=== PATIENT | female | born 1980 | race Caucasian/White ===

== ENCOUNTER 2020-03-22 10:35 | Outpatient (CLI) | payer OTHER, SELFPAY ==
--- NOTE | ~2020-03-22 | MM_ITS ---
EXAMINATION: MM screening liza BI w carol HISTORY: Screening mammogram TECHNIQUE: Craniocaudal and mediolateral oblique 3-D tomosynthesis images were obtained and synthetic 2-D images were generated. CAD analysis was submitted and interpreted. COMPARISON: No prior mammogram is available for comparison at this institution. BREAST PARENCHYMAL COMPOSITION: There are scattered areas of fibroglandular density. FINDINGS: There is no evidence of suspicious mass, calcification, or architectural distortion to sugg est malignancy in either breast. There has been no suspicious interval change. IMPRESSION: 1. No mammographic evidence of malignancy. 2. Recommend routine screening mammography in one year. BI-RADS Category 1: Negative Reviewed, dictated and finalized at location [facility]
== END 2020-03-22 10:36 | disposition home or self-care (01) ==
LOC: ANHIMG 10:38
PROVIDERS: PCP Internal Medicine; Visit Provider Surgery Plastic and Reconstructive Surgery
DX: Z12.31 Encounter for screening mammogram for malignant neoplasm of breast (principal)
CPT/HCPCS: 77063; 77067

== ENCOUNTER 2020-04-08 02:22 | Outpatient (CLI) | payer OTHER, SELFPAY ==
[2020-04-08 18:35] LABS: SARS-CoV-2 RNA PCR Negative
== END 2020-04-08 02:23 | disposition home or self-care (01) ==
LOC: ANHCOVIDDT 02:22
PROVIDERS: PCP Internal Medicine; Visit Provider Surgery Plastic and Reconstructive Surgery
DX: Z01.812 Encounter for preprocedural laboratory examination (principal); Z20.828 Contact with and (suspected) exposure to other viral communicable diseases
CPT/HCPCS: 87635; C9803; U0003

== ENCOUNTER 2020-04-11 00:11 | Day surgery (SDC) | payer OTHER, SELFPAY ==
[2020-04-02 14:15] VITALS: BMI 24.2
--- NOTE | 2020-04-10 13:24 | WPDANESEPPF ---
Anes - Initial Pre Proc Eval Procedure: Operation Date: 04/11/20 07:30 Proposed Procedures p Bilateral Breast Implant Removal - Jaiden Ramos MD s Bilateral Breast Mastopexy - Jaiden Ramos MD s Bilateral Upper Eye Lid Blepharoplasty - Jaiden Ramos MD Date/Time: 04/10/20 13:24 Surgeon: Jaiden Ramos MD Pre Op Diagnosis: Hx of Breast Augmentation, Dermatochalasis Patient Data Age: 39 Gender: F Height: 5 ft 6 in Weight: 68 kg Allergies Allergy/AdvReac Type Severity Reaction Status Date / Time Sulfa (Sulfonamide Allergy Intermediate Rash Verified 04/11/20 06:35 Antibiotics) sulfamethoxazole Allergy Mild rash Verified 04/11/20 06:35 trimethoprim Allergy Mild Rash Verified 04/11/20 06:35 tramadol AdvReac Intermediate Itching Verified 04/11/20 06:35 Home Medications Medication Instructions Recorded Confirmed Type No Home Medications 04/02/20 04/11/20 History Patient hx anesthesia problems: none Family hx anesthesia problems: none PMFSH Past Medical History Medical History Migraines Surgical History Surgical History History of breast augmentation Family History Family History Sibling Family history of multiple sclerosis Mother Family history of anemia Social History Social History Smoking status: Never smoker Second hand tobacco smoke exposure: No Smoking end date: 04/26/05 Alcohol intake: current Alcohol use details: occassional Living arrangements: with family Spiritual care concerns: No Anes - Eval Final PreProcedure Day of Procedure 04/10/20 13:24 Patient weight: normal Heart: regular rate and rhythm Lungs: clear to auscultation Airway: Mallampati scale class II Neurological: alert and oriented Last oral intake: >/= 8 hours ASA classification: II Emergent: no Anesthetic plan: proceed Anesthesia type and monitoring: general LMA and standard monitoring Informed Consent: The patient's anesthetic plan and its attendant risks and benefits were discussed with the patient/family/POA. Questions were solicited and answers provided to the satisfaction of the patient/family/POA.
[2020-04-11] VITALS (10 sets, daily range): BP systolic 111–127; BP diastolic 75–90; PULSE 53–89; RESP 10–20; TEMP 36.2–36.6; O2SAT 100
[2020-04-11] MEDS: LACTATED RINGERS 1,000 ML 30 ML IV CONT ×2 (06:26→11:15)
[2020-04-11 06:44] LABS: Urine Cotinine NEGATIVE
--- NOTE | 2020-04-11 06:57 | WPDHPUPDATE1 ---
History and Physical Update Update Date/Time: 04/11/20 06:57 History and Physical has been reviewed, including an updated exam of the patient. There are NO changes in the patient's condition. Risks, benefits, and alternatives have been discussed and questions answered. Patient agrees to proceed with procedure.
[2020-04-11] MEDS: ceFAZolin 2 GM/D5W 50 ML 2 GM/50 ML BAG IVPB (07:37)
[2020-04-11] MEDS: LIDO 1%/EPINEPHRINE 1:100,000 20 ML VIAL 12 ML INFILTRATE (08:08)
[2020-04-11] MEDS: TETRACAINE HCL 0.5% OPHTH SOLN 4 ML BTL 1 DROP EACH EYE (08:08)
--- NOTE | 2020-04-11 11:08 | PM.PROC ---
Procedure Note - Detailed Date of procedure: 04/11/20 Pre-op diagnosis: Hx of Breast Augmentation, Dermatochalasis Post-op diagnosis: same Procedure performed: 1. Bilateral upper eyelid blepharoplasty 2. Bilateral implant removal 3. Bilateral mastopexy Description of procedure: Risks, benefits, alternatives were discussed in extensive detail. I want her to be very realistic about the risks involved as well as expectations. Made sure answered all of her questions to her satisfaction. Consent obtained. She was marked in the preoperative holding area with her verification. I did an upper eyelid pinch test after marking to verify no evidence of lagophthalmos. She was taken to the operating room placed supine on the operating room table. Anesthesia was provided by anesthesiology and she was prepped and draped in a standard sterile fashion. Surgical time-out was taken. I proceeded with the eyes 1st. 1% lidocaine and 0.25% Marcaine with epinephrine was used anesthetize locally. A 15 blade used to make an incision in a skin resection was completed on upper eyelids. Open the medial and middle fat compartments in the really was minimal excess adiposity. Verified strict hemostasis. I closed using running subcuticular 5 0 Prolene. Benzoin and Steri-Strips were placed in order to hold the suture ends. I irrigated the eye with BSS solution. Steri-Strips were placed held I closed during the remainder this procedure. She was re-prepped and draped in a standard sterile fashion. I did a field block on the breast with 1% lidocaine and 0.25% Marcaine with epinephrine 60 cc total. Fifteen blade used to make an incision on laterally at the IMF. Dissection was continued down to the implants were identified these were removed. These were smooth saline implants. I irrigated with a total volume of 3 L of saline solution on TUR. Fifteen Nancy drain was placed and sutured into place with 3-0 nylon. I tailor tacked the breast into place. Verified my markings. This was in a sitting position. She was then placed supine. I marked out the nipple-areolar complex at 42 mm and de-epithelialized superior pedicle. I did an auto augmentation of the central keel tacking this deep. This was sutured to the chest wall with 2-0 PDS. Medial and lateral flaps were elevated with suture sutured over this central auto augmentation and closed using 2-0 Vicryl. I then tailor tacked into place. Nipple-areolar complex was closed with 3-0 Monocryl, 2-0 PDS and 3-0 Monocryl vertically and then 2-0 PDS and 3-0 strata fix along the IMF. Then ran a running subcuticular 4-0 Monocryl for everything. Steri-Strips fluffs and a surgical bra were placed. She had good color and capillary refill of the nipple-areolar complex at the end of the procedure bilateral. Taken to the PACU without difficulty. All instrument sponge counts were correct at the end of the case. Surgeon: Jaiden Ramos MD Estimated blood loss (mL): 40 Drains: Yes (Bilateral 15 nancy drain) Packing: No Pathology: none sent Complications: No immediate complications Condition: stable Disposition: PACU Findings: Inverted T superior pedicle mastopexy using autoaugmentation technique inferiorly based.
[2020-04-11] MEDS: fentaNYL CITRATE INJ (*CRX) 100 MCG/2 ML VIAL 25 MCG IV PUSH ×8 (11:24→12:07)
[2020-04-11] MEDS: oxyCODONE HCL (*CRX) 5 MG TAB IR PO (12:29)
== END 2020-04-11 13:18 | disposition home or self-care (01) ==
PROVIDERS: PCP Internal Medicine; Visit Provider Surgery Plastic and Reconstructive Surgery
PROC: 0HPT0JZ Removal of Synthetic Substitute from Right Breast, Open Approach (ICD-10-PCS; CPT 19328; principal; 2020-04-11 07:30)
PROC: (CPT 19316; 2020-04-11 07:30)
PROC: (CPT 19328; 2020-04-11 07:30)
DX: Z45.812 Encounter for adjustment or removal of left breast implant (principal); Z45.811 Encounter for adjustment or removal of right breast implant; H02.834 Dermatochalasis of left upper eyelid; H02.831 Dermatochalasis of right upper eyelid
CPT/HCPCS: 19328; 19316; 15822; 80307; A9270; J0171; J0690; J1100; J1885; J2250; J2405; J2704; J3010; J7040; J7120

== ENCOUNTER 2020-06-20 10:16 | Outpatient (CLI) | payer OTHER, SELFPAY ==
[2020-06-20 10:42] LABS: Basophils Percent Auto 0.2 % (0.2-1.2); Eosinophils Absolute Auto 0.1 K/mm3 (0-0.3); Eosinophils Percent Auto 0.9 % (0-4.4); Hemoglobin 12.1 g/dL (12.0-15.0); Immature Granulocyte Absolute 0.01 K/mm3 (0.00-0.031); Immature Granulocyte Percent A 0.2 % (0-0.5); Lymphocytes Absolute Auto 2.03 K/mm3 (0.9-3.2); Lymphocytes Percent Auto 38.1 % (18.3-44.2); Mean Corpuscular HGB Conc 32.7 g/dl (32-36); Mean Corpuscular Hemoglobin 31.5 pg (26-34); Mean Corpuscular Volume 96.4 fl (80-100); Mean Platelet Volume 9.3 fl (7.4-10.4); Monocytes Absolute Auto 0.4 K/mm3 (0.1-0.6); Monocytes Percent Auto 7.3 % (2.6-8.5); Neutrophils Absolute Auto 2.8 K/mm3 (1.3-6.7); Neutrophils Percent Auto 53.3 % (45.5-73.1); Platelet Count Result 190 k/mm3 (150-375); Red Blood Count 3.84 M/mm3 (4.2-5.4); Red Cell Distribution Width 12.9 % (11.5-14.5); White Blood Count 5.3 K/mm3 (4.5-10.0)
[2020-06-20 10:59] LABS: Alanine Aminotransferase 9 U/L (4-35); Albumin Level 4.2 g/dL (3.5-5.1); Alkaline Phosphatase 35 U/L (38-126); Anion Gap 4 mmol/L (8-16); Aspartate Amino Transferase 16 U/L (14-36); Bilirubin,Total 0.5 mg/dL (0.2-1.3); Blood Urea Nitrogen 14 mg/dL (7-17); Calcium 8.9 mg/dL (8.4-10.2); Carbon Dioxide 29 mmol/L (22-30); Chloride 103 mmol/L (98-107); Cholesterol 186 mg/dL (0-200); Estimated Glomerular Filt Rate > 60; Glucose 94 mg/dL (65-105); HDL Direct 55 mg/dL; Potassium 3.8 mmol/L (3.4-5.0); Sodium 136 mmol/L (137-145); Triglycerides 88 mg/dL (<150)
[2020-06-20 11:10] LABS: LDL Cholesterol Direct 114 mg/dL
[2020-06-20 11:27] LABS: Thyroid Stimulating Hormone 0.705 uIU/mL (0.465-4.680)
== END 2020-06-20 10:17 | disposition home or self-care (01) ==
PROVIDERS: PCP Internal Medicine; Visit Provider Internal Medicine
DX: Z00.00 Encounter for general adult medical examination without abnormal findings (principal)
CPT/HCPCS: 36415; 80053; 80061; 84443; 85025

== ENCOUNTER → 2020-07-27 05:21 | Outpatient (CLI) | payer OTHER, SELFPAY ==
[2020-07-27 19:33] LABS: SARS-CoV-2 RNA PCR Negative
== END ==
PROVIDERS: PCP Internal Medicine; Visit Provider Surgery
DX: Z01.812 Encounter for preprocedural laboratory examination (principal); Z20.822 Contact with and (suspected) exposure to COVID-19
CPT/HCPCS: C9803; U0003; U0005